=== PATIENT | female | born 1995 | race Caucasian/White ===

== ENCOUNTER 2016-11-09 16:59 | Emergency (ER) | payer BC ==
[2016-11-09] MEDS ORDERED: HYDROcod/ACETAM 5/325 MG TABLET PO STA (18:22)
[2016-11-09] MEDS ORDERED: HYDROcod/ACETAM 5/325 MG TABLET ONE (18:25)
== END 2016-11-09 19:07 | disposition home or self-care (01) ==
DX: S82.892A Other fracture of left lower leg, initial encounter for closed fracture (principal); X50.1XXA Overexertion from prolonged static or awkward postures, initial encounter; Y92.009 Unspecified place in unspecified non-institutional (private) residence as the place of occurrence of the external cause
CPT/HCPCS: 73610; 99283; 99284; A9270